=== PATIENT | male | born 1985 | race Caucasian/White ===

== ENCOUNTER 2017-01-17 08:12 | Observation (INO) | payer OTHER ==
--- NOTE | 2017-01-17 08:37 | UCPHY ---
H & P Patient Type: New Time Seen by Provider: 01/17/17 08:27 HPI/ROS: Chief Complaint: A left lower abdominal pain HPI: 31-year-old male presenting with several days of worsening left lower abdominal pain with some pain with urination. Patient describes it as a dull pain in his left lower abdomen which occasionally radiates to his general area. He does have some cramping low pelvic pain after he urinates. Does not have any burning with urination. No urethral discharge. No rashes or lesions. He is not sexually active. Has never had a sexually transmitted disease. Denies any back pain. Pain at worst is a 10/10. This morning is a 7/10. There are no aggravating or alleviating factors. Is unable to find a position of comfort. No fevers or chills. No nausea vomiting or diarrhea. ROS: 10 point Review of Systems is negative except as noted in the HPI. PMH: Anxiety Medications: None Allergies: Bupropion Social History: Occasional smoking, occasional alcohol, no recreational drug use Family History: non-contributory Physical Exam: Gen: Awake, Alert, No Distress HEENT: Nose: no rhinorrhea Eyes: PERRLA, EOMI Mouth: Moist mucosa Neck: Supple, no JVD Chest: nontender, lungs clear to auscultation Heart: S1, S2 normal, no murmur Abd: Soft, mild left lower and suprapubic tenderness to deep palpation, no guarding Back: no CVA tenderness, no midline tenderness Ext: no edema, non-tender Skin: no rash Neuro: CN II-XII intact, Sensation grossly intact, Strength 5/5 in bilateral upper and lower extremities - Family History Significant Family History: No pertinent family hx Constitutional: Initial Vital Signs Temperature (C) 36.6 C 01/17/17 08:29 Heart Rate 100 01/17/17 08:29 Respiratory Rate 18 01/17/17 08:29 Blood Pressure 132/94 H 01/17/17 08:29 O2 Sat (%) 98 01/17/17 08:29 O2 Delivery Mode Room Air Allergies/Adverse Reactions: No Known Allergies Allergy (Unverified 01/17/17 12:52) Home Medications: Medication Instructions Recorded NK [No Known Home Meds] 01/17/17 Medical Decision Making - Diagnostics Imaging: CT scan abdomen pelvis without contrast shows sigmoid diverticulitis with microperforation. No abscess. This was interpreted by Dr. Burt. ED Course/Re-evaluation: Patient left lower quadrant abdominal pain. Urinalysis is negative. CT scan reveals sigmoid diverticulitis with microperforation. I have discussed with Gretta Rodriguez, hospitalist. Will admit to hospitalist service at [facility] under Dr. Pink. Will give Levaquin and Flagyl now. - Data Points Laboratory Results: Laboratory Results 01/17/17 09:00 01/17/17 08:58 01/17/17 01/17/17 01/17/17 09:33 09:00 08:58 WBC 17.46 10^3/uL H 10^3/uL (3.80-9.50) RBC 5.91 10^6/uL 10^6/uL (4.40-6.38) Hgb 17.0 g/dL g/dL (13.7-17.5) Hct 48.5 % % (40.0-51.0) MCV 82.1 fL fL (81.5-99.8) MCH 28.8 pg pg (27.9-34.1) MCHC 35.1 g/dL g/dL (32.4-36.7) RDW 12.3 % % (11.5-15.2) Plt Count 224 10^3/uL 10^3/uL (150-400) MPV 10.7 fL fL (8.7-11.7) Neut % (Auto) 76.6 % H % (39.3-74.2) Lymph % (Auto) 13.2 % L % (15.0-45.0) [place] % (Auto) 9.2 % % (4.5-13.0) Eos % (Auto) 0.5 % L % (0.6-7.6) Baso % (Auto) 0.1 % L % (0.3-1.7) Nucleat RBC Rel Count 0.0 % % (0.0-0.2) Absolute Neuts (auto) 13.38 10^3/uL H 10^3/uL (1.70-6.50) Absolute Lymphs (auto) 2.31 10^3/uL 10^3/uL (1.00-3.00) Absolute Monos (auto) 1.60 10^3/uL H 10^3/uL (0.30-0.80) Absolute Eos (auto) 0.08 10^3/uL 10^3/uL (0.03-0.40) Absolute Basos (auto) 0.02 10^3/uL 10^3/uL (0.02-0.10) Absolute Nucleated RBC 0.00 10^3/uL 10^3/uL (0-0.01) Immature Gran % 0.4 % % (0.0-1.1) Immature Gran # 0.07 10^3/uL 10^3/uL (0.00-0.10) Sodium 138 mEq/L mEq/L (134-144) Potassium 4.1 mEq/L mEq/L (3.5-5.2) Chloride 102 mEq/L mEq/L (97-110) Carbon Dioxide 20 mEq/l L mEq/l (22-31) Anion Gap 16 mEq/L mEq/L (8-16) BUN 17 mg/dL mg/dL (7-23) Creatinine 0.9 mg/dL mg/dL (0.7-1.3) Estimated GFR > 60 Glucose 119 mg/dL H mg/dL (70-100) Calcium 9.1 mg/dL mg/dL (8.5-10.4) Urine Color YELLOW Urine Appearance CLEAR Urine pH 6.0 (5.0-7.5) Ur Specific [place] >= 1.030 (1.002-1.030) Urine Protein NEGATIVE (NEGATIVE) Urine Ketones NEGATIVE (NEGATIVE) Urine Blood NEGATIVE (NEGATIVE) Urine Nitrate NEGATIVE (NEGATIVE) Urine Bilirubin NEGATIVE (NEGATIVE) Urine Urobilinogen 0.2 EU EU (0.2-1.0) Ur Leukocyte Esterase NEGATIVE (NEGATIVE) Urine Glucose NEGATIVE (NEGATIVE) C.trachomatis RNA (TMA) N.gonorrhoeae RNA (TMA) 01/17/17 08:45 WBC RBC Hgb Hct MCV MCH MCHC RDW Plt Count MPV Neut % (Auto) Lymph % (Auto) [place] % (Auto) Eos % (Auto) Baso % (Auto) Nucleat RBC Rel Count Absolute Neuts (auto) Absolute Lymphs (auto) Absolute Monos (auto) Absolute Eos (auto) Absolute Basos (auto) Absolute Nucleated RBC Immature Gran % Immature Gran # Sodium Potassium Chloride Carbon Dioxide Anion Gap BUN Creatinine Estimated GFR Glucose Calcium Urine Color Urine Appearance Urine pH Ur Specific [place] Urine Protein Urine Ketones Urine Blood Urine Nitrate Urine Bilirubin Urine Urobilinogen Ur Leukocyte Esterase Urine Glucose C.trachomatis RNA (TMA) Pending N.gonorrhoeae RNA (TMA) Pending Medications Given: Discontinued Medications Fentanyl (Sublimaze) 50 mcg IVP EDNOW ONE Stop: 01/17/17 11:50 Last Admin: 01/17/17 11:55 Dose: 50 mcg Sodium Chloride (Ns) 1,000 mls @ 0 mls/hr IV ONCE ONE PRN Reason: Wide Open Stop: 01/17/17 09:04 Last Admin: 01/17/17 08:55 Dose: 1,000 mls Levofloxacin/Dextrose (Levaquin 750 Mg (Premix)) 150 mls @ 100 mls/hr IV EDNOW ONE PRN Reason: Protocol Stop: 01/17/17 12:42 Last Admin: 01/17/17 12:13 Dose: Not Given Metronidazole/Sodium Chloride (Flagyl 500 Mg (Premix)) 100 mls @ 100 mls/hr IV EDNOW ONE PRN Reason: Protocol Stop: 01/17/17 12:09 Last Admin: 01/17/17 11:25 Dose: 100 mls Ketorolac Tromethamine (Toradol) 15 mg IVP EDNOW ONE Stop: 01/17/17 09:33 Last Admin: 01/17/17 09:41 Dose: 15 mg Levofloxacin (Levaquin) 750 mg PO ONCE ONE PRN Reason: Protocol Stop: 01/17/17 11:56 Last Admin: 01/17/17 11:58 Dose: 750 mg Departure - Departure Disposition: [facility] Inpatient Acute Clinical Impression: Diverticulitis Condition: Good - PQRS PQRS Measurement: NA
[2017-01-17] MEDS ORDERED: NS 1,000 ML IV ONE (09:03)
[2017-01-17 09:22] LABS: ANION GAP 16 mEq/L (8-16); CALCIUM 9.1 mg/dL (8.5-10.4); CARBON DIOXIDE 20 mEq/l (22-31); CHLORIDE 102 mEq/L (97-110); CREATININE 0.9 mg/dL (0.7-1.3); GLOMERULAR FILTRATION RATE > 60; GLUCOSE 119 mg/dL (70-100); POTASSIUM 4.1 mEq/L (3.5-5.2); SODIUM 138 mEq/L (134-144)
[2017-01-17] MEDS ORDERED: KETOROLAC 15 MG/1 ML SDV IVP ONE (09:32)
[2017-01-17 09:39] LABS: COLOR YELLOW; LEUKOCYTE ESTERASE,URINE NEGATIVE (NEGATIVE); NITRITE,URINE NEGATIVE (NEGATIVE)
[2017-01-17 10:59] LABS: % IMMATURE GRANULYOCYTES 0.4 % (0.0-1.1); ABSOLUTE IMMATURE GRANULOCYTES 0.07 10^3/uL (0.00-0.10); ADD DIFF? NO; ADD MORPH? NO; ADD SCAN? NO; ATYPICAL LYMPHOCYTE FLAG 0 (0-99); FRAGMENT RBC FLAG 0 (0-99); HEMATOCRIT 48.5 % (40.0-51.0); LEFT SHIFT FLG 0 (0-99); LIPEMIA HEMOLYSIS FLAG 90 (0-99); MEAN CELL HEMOGLOBIN 28.8 pg (27.9-34.1); MEAN CELL HEMOGLOBIN CONCENTR. 35.1 g/dL (32.4-36.7); MEAN CELL VOLUME 82.1 fL (81.5-99.8); MEAN PLATELET VOLUME 10.7 fL (8.7-11.7); PLATELET CLUMPS FLAG 0 (0-99); PLATELET COUNT 224 10^3/uL (150-400); RED BLOOD CELL COUNT 5.91 10^6/uL (4.40-6.38); RED CELL DISTRIBUTION WIDTH 12.3 % (11.5-15.2)
[2017-01-17] MEDS ORDERED: fentaNYL 100 MCG/2 ML INJ IVP ONE (11:49)
[2017-01-17] MEDS ORDERED: ACETAMINOPHEN 325 MG TAB PO PRN (13:26)
[2017-01-17] MEDS ORDERED: ONDANSETRON 4 MG/2 ML VIAL IVP PRN (13:26)
[2017-01-17] MEDS ORDERED: ONDANSETRON DISINTEGRATING 4 MG TAB PO PRN (13:26)
[2017-01-17 13:34] VITALS: RESP 16
[2017-01-17] MEDS ORDERED: oxyCODONE IR 5 MG TAB PO PRN ×2 (14:02→14:19)
[2017-01-17] MEDS: CEFEPIME HCL 2 GM in D5W 100 ML IV SCH ×2 (14:28→22:00)
--- NOTE | 2017-01-17 15:45 | GHP ---
[f rep st] HISTORY AND PHYSICAL DATE OF ADMISSION: 01/17/2017 CHIEF COMPLAINT: Diverticulitis. HISTORY OF PRESENT ILLNESS: Patient is a 31-year-old male with history of anxiety who presents with several days of left lower abdominal pain. Pain started initially yesterday morning in the left lower quadrant. It was sharp in nature. It did radiate down to the left and right groin. Pain worse last night, 05/30. He had some associated nausea but no vomiting. Denies fevers, chills, sweats, or diarrhea. He did eat dinner last night and a few crackers today. Began having a headache today when at urgent care clinic. He has cramping pelvic pain with urination. He denies urethral rash or urethral discharge and is not currently sexually active. REVIEW OF SYSTEMS: I completed a 10-point review of systems, negative except as noted in HPI. PAST MEDICAL HISTORY: 1. Anxiety. 2. Hypertension, previously on hydrochlorothiazide. PAST SURGICAL HISTORY: Appendectomy. SOCIAL HISTORY: Lives in [place]. 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 Occasional cigarettes. Social alcohol. No illicits. FAMILY HISTORY: Mother with hypertension, diabetes. Paternal grandfather with cancer. ALLERGIES: Bupropion. PHYSICAL EXAMINATION: VITAL SIGNS: Temperature 36.8, blood pressure 160/92, heart rate 70-80s, respirations 16, 93% on room air. GENERAL: Overweight, white , no acute distress, lying in bed. HEENT: PERRLA, EOMI. Moist mucous membranes. CV: Regular rate and rhythm. No murmurs, gallops, rubs. LUNGS: Clear to auscultation bilaterally. ABDOMEN: Soft, nondistended. Left lower quadrant tenderness greater than right lower quadrant. No pain or palpable hernia in left inguinal region. No guarding or rebound. Positive bowel sounds throughout. : No suprapubic tenderness. MUSCULOSKELETAL: 5/5 upper and lower extremity strength. NEURO: 2 through 12 intact. PSYCHIATRIC: Alert and oriented x3. LABS: WBC 17.4, hemoglobin 17, hematocrit 48, platelets 222. Sodium 138, potassium 4.1, chloride 102, carbon dioxide 28, BUN 17, creatinine 0.9, glucose 119, calcium 9.1. Urine negative. G&C pending. Abdominal CT: Sigmoid diverticulitis with punctate free air consistent with perforation with no visible abscess with a small amount of free fluid. Fatty liver. Fat-containing left inguinal hernia. ASSESSMENT/PLAN: 1. Acute diverticulitis: Evidence of sigmoid involvement with small micro perforations. No evidence of abscess. Patient will be admitted for observation. Treated with IV antibiotics and fluids. May trial a clear liquid diet. 2. Acute abdominal pain: Secondary to diverticulitis. No TTP over inguinal region. PRN IV morphine. UA negative. G&C pending 3. Leukocytosis: Secondary to diverticulitis. UA was negative. We will repeat in the morning. 4. DVT prophylaxis: Low risk. 5. Diet: Clears. 6. Disposition: Patient warrants observation admission given acute diverticulitis, warranting IV fluids and antibiotics. /[id number]/MODL MTDD
[2017-01-17 16:33] VITALS: O2SAT 96
[2017-01-17 16:38] LABS: ALBUMIN 4.2 g/dL (3.5-5.0); BILIRUBIN,TOTAL 1.2 mg/dL (0.1-1.4); BILIRUBIN-CONJUGATED 0.4 mg/dL (0.0-0.5); BILIRUBIN-UNCONJUGATED 0.8 mg/dL (0.0-1.1); TOTAL PROTEIN 7.8 g/dL (6.3-8.2)
[2017-01-17] MEDS: oxyCODONE IR 5 MG TAB PO PRN (20:14)
[2017-01-18] MEDS: oxyCODONE IR 5 MG TAB PO PRN (02:27)
[2017-01-18] MEDS: CEFEPIME HCL 2 GM in D5W 100 ML IV SCH ×2 (05:05→14:33)
[2017-01-18 05:48] LABS: HEMATOCRIT 44.3 % (40.0-51.0); MEAN CELL HEMOGLOBIN 28.7 pg (27.9-34.1); MEAN CELL HEMOGLOBIN CONCENTR. 33.9 g/dL (32.4-36.7); MEAN CELL VOLUME 84.9 fL (81.5-99.8); RED BLOOD CELL COUNT 5.22 10^6/uL (4.40-6.38); RED CELL DISTRIBUTION WIDTH 12.1 % (11.5-15.2)
[2017-01-18 06:44] LABS: CHLAMYDIA AMPLIFICATION GENPRB NEGATIVE (NEGATIVE)
[2017-01-18 08:03] VITALS: BP 143/83; PULSE 86; TEMP 99.2
--- NOTE | 2017-01-18 08:49 | HOSPPROG ---
Hospitalist Progress Note Assessment/Plan: #Acute abdominal pain: due to diverticulitis. UA/G&C negative. No TTP over hernia -tolerated full liquids. Would like to go home. #Acute diverticulitis: pain improved. Change to PO abx. Oxycodone #Left inguinal hernia: no e/o strangulation #Disp: DC today. provided detailed return precautions Subjective: pain much improved. Tolerated full liquids diet today Objective: Vital Signs Temp Pulse Resp BP Pulse Ox 37.3 C 86 16 143/83 H 96 01/18/17 08:02 01/18/17 08:02 01/18/17 08:02 01/18/17 08:02 01/18/17 08:02 Laboratory Results 01/18/17 05:00 01/17/17 01/18/17 01/19/17 05:59 05:59 05:59 Intake Total 2800 300 Output Total 550 Balance 2250 300 - Physical Exam Constitutional: no apparent distress Eyes: PERRL Ears, Nose, Mouth, Throat: moist mucous membranes Cardiovascular: regular rate and rhythym Respiratory: no respiratory distress Gastrointestinal: normoactive bowel sounds, soft, non-tender abdomen, tenderness (mild lower LLQ TTP, quiet BS throughout) Genitourinary: no bladder fullness Skin: warm ICD10 Worksheet Patient Problems: Problems Problem Status Onset Diverticulitis Acute
[2017-01-18] MEDS ORDERED: IBUPROFEN 600 MG TAB PO ONE (09:25)
--- NOTE | 2017-01-18 17:18 | GDS ---
[f rep st] DISCHARGE SUMMARY DISCHARGE DIAGNOSES: 1. Acute abdominal pain. 2. Diverticulitis. 3. Left inguinal hernia. 4. Accelerated hypertension. HISTORY OF PRESENT ILLNESS: The patient is a 31-year-old male with history of hypertension, not currently on BP medications, and anxiety presenting with several days of left lower abdominal pain. The pain started initially yesterday morning with left lower quadrant, sharp in nature. It did radiate down the left and right groin. Pain was worst at 8/10. He had associated nausea, but no vomiting. Denies fevers, chills, or sweats. No diarrhea. He did eat dinner the night prior to admission, and had a few crackers the day of. He has had a headache since being in the urgent care clinic. HOSPITAL COURSE BY PROBLEM: 1. Acute abdominal pain secondary to acute diverticulitis: Abdominal CT demonstrated sigmoid diverticulitis with microperforation. No abscess. The patient was admitted and empirically treated with IV antibiotics, fluids, and n.p.o. status. As pain improved advanced his diet to full liquids, which he tolerated today without issue. 2. Acute diverticulitis: Again, no evidence of abscess. Treated empirically with IV antibiotics. Symptoms have much improved. The patient tolerated a full liquid diet today. We will continue ciprofloxacin and Flagyl for a total of 7 days antibiotics. The patient was given strict return precautions, with increased abdominal pain, nausea, vomiting. 3. Left inguinal hernia. This was demonstrated on CT. The patient was asymptomatic. No palpable hernia. He was advised if it becomes larger or symptomatic, to contact a general surgeon. 4. Leukocytosis. WBC was elevated to 17. Suspect this is inflammation given acute diverticulitis. Denies other infectious symptoms. UA and G and C were negative. He has remained afebrile. DISPOSITION: The patient is stable for discharge. MEDICATIONS: 1. Ciprofloxacin 500 b.i.d. 2. Flagyl 500 t.i.d. 3. Oxycodone. FOLLOWUP: 1. PCP to repeat blood pressure and possible antihypertensive. 2. Referral for a surgeon if inguinal hernia becomes symptomatic. /[id number]/MODL MTDD
== END 2017-01-18 16:15 | disposition home or self-care (01) ==
LOC: CED 08:12 → INTOOBSV 11:13 → CEDHOLD 11:13 → F3N 13:25
PROVIDERS: ADMIT Internal Medicine; ATTEND Internal Medicine
DX: R10.0 Acute abdomen (principal); K57.32 Diverticulitis of large intestine without perforation or abscess without bleeding; K40.90 Unilateral inguinal hernia, without obstruction or gangrene, not specified as recurrent; I10 Essential (primary) hypertension; F41.9 Anxiety disorder, unspecified
CPT/HCPCS: 74176; 96361; 96365; 96372; 96375; 99203; G0378; 80048-PO; 81003-PO; 85025-PO; G0463-PO; J0692; J1885; J3010

== ENCOUNTER 2017-01-21 14:34 | Inpatient (IN) | payer OTHER ==
--- NOTE | 2017-01-21 14:48 | UCPHY ---
H & P Patient Type: Established Chief Complaint Nursing Narrative: recent hospitalization dx with diverticulitis , d/c home with oral abx, still with abd tenderness and loose stools, pt concerned for tenderness and stools, requesting MD evaluation. denies fevers HPI/ROS: HPI CHIEF COMPLAINT: Abdominal pain, abdominal bloating, recent hospitalization diverticulitis HISTORY OF PRESENT ILLNESS: This patient very pleasant 31-year-old male significant past medical history for hypertension, recent hospitalization for acute diverticulitis of the sigmoid colon with micro perforation, was hospitalized this past week stayed 1 day in the hospital. He went home on Saturday or 3 days ago. He now presents to the urgent care with abdominal pain and abdominal bloating. He is unsure if this is normal for his recovery or not. He has been taking his ciprofloxacin been taking his Flagyl. No fever no vomiting does complain of still having diarrhea. Past Medical History: Acute diverticulitis, hypertension Past Surgical History: no recent surgical history Social History: denies daily use of drugs alcohol tobacco products Family History: Noncontributory ROS REVIEW OF SYSTEMS: A comprehensive 10 point review of systems is otherwise negative aside from elements mentioned in the history of present illness. Exam Constitutional triage nursing summary reviewed, vital signs reviewed, awake/ alert. Eyes normal conjunctivae and sclera, EOMI, PERRLA. HENT normal inspection, atraumatic, moist mucus membranes, no epistaxis, neck supple/ no meningismus, no raccoon eyes. Respiratory clear to auscultation bilaterally, normal breath sounds, no respiratory distress, no wheezing. Cardiovascular rate normal, regular rhythm, no murmur, no edema, distal pulses normal. Gastrointestinal soft, mild tenderness to palpation left lower quadrant, no rebound, no guarding, normal bowel sounds, no distension, no pulsatile mass. Genitourinary no CVA tenderness. Musculoskeletal no midline vertebral tenderness, full range of motion, no calf swelling, no tenderness of extremities, no meningismus, good pulses, neurovascularly intact. Skin pink, warm, & dry, no rash, skin atraumatic. Neurologic awake, alert and oriented x 3, AAOx3, moves all 4 extremities equally, motor intact, sensory intact, CN II-XII intact, normal cerebellar, normal vision, normal speech. Psychiatric normal mood/affect. Heme/Lymph/Immune no lymphadenopathy. Differential diagnosis includes but is not limited to and in no particular order : worsening diverticulitis, worsening perforation, abscess Bowel obstruction, appendicitis, gallbladder disease, diverticulitis, colitis, enteritis, perforated viscus, gastritis, GERD, esophagitis, urinary tract infection, pyelonephritis, kidney stones Medical Decision Making: plan for this patient IV will be established, fluid bolus given, check blood work, and reimaging CT scan due to worsening abdominal pain concern for larger perforation, worsening acute diverticulitis or intra- abdominal abscess. Re-evaluation: CT scan of the abdominal with IV contrast The results of the study are shows worsening diverticulitis with perforation. The study was read by Dr. Ibarra I viewed the images myself on the PACS system. 1621: This patient appears well nontoxic not vomiting however CT scan shows worsening acute diverticulitis with perforation. Patient need to be readmitted to the hospital. Patient has been updated agrees for plan grease for transfer to the hospital. 1624: spoke with Dr. Dugan who agrees to admit this patient med surgical bed. Patient hemodynamically stable. Worsening acute diverticulitis. Will consult surgery. IV ertapenem ordered patient was on Cipro Flagyl, outpatient and briefly in the hospital. May be failing Cipro Flagyl. 1629: Spoke with Dr. Vipul Fuentes with General surgery. Plans to operate. Patient made NPO. Hospitalist service updated. Source: Patient - Medical/Surgical History Hx Asthma: No Hx Chronic Respiratory Disease: No Hx Diabetes: No Hx Cardiac Disease: No Hx Renal Disease: No Hx Cirrhosis: No Hx Alcoholism: No Hx HIV/AIDS: No Hx Splenectomy or Spleen Trauma: No Other PMH: anxiety, HTN, diverticulitis - Family History Significant Family History: No pertinent family hx - Social History Smoking Status: Current some day smoker Constitutional: Initial Vital Signs Temperature (C) 36.5 C 01/21/17 14:43 Heart Rate 82 01/21/17 14:43 Respiratory Rate 18 01/21/17 14:43 Blood Pressure 175/110 H 01/21/17 14:43 O2 Sat (%) 95 01/21/17 14:43 O2 Delivery Mode Nasal Cannula O2 (L/minute) 1 Allergies/Adverse Reactions: No Known Allergies Allergy (Unverified 01/21/17 14:42) Home Medications: Medication Instructions Recorded Ciprofloxacin HCl [Ciprofloxacin] 500 mg PO BID #28 tablet 01/24/17 metroNIDAZOLE [Flagyl 500 mg (*)] 500 mg PO TID #42 tab 01/24/17 Medical Decision Making - Data Points Laboratory Results: Laboratory Results 01/21/17 15:12 01/21/17 15:12 Medications Given: Discontinued Medications Sodium Chloride (Ns) 1,000 mls @ 0 mls/hr IV ONCE ONE PRN Reason: Wide Open Stop: 01/21/17 14:57 Last Admin: 01/21/17 15:12 Dose: 1,000 mls Ertapenem 1 gm/ Sodium (Chloride) 100 mls @ 200 mls/hr IV EDNOW ONE PRN Reason: Protocol Stop: 01/21/17 16:52 Last Admin: 01/21/17 16:32 Dose: 100 mls Sodium Chloride (Ns) 1,000 mls @ 0 mls/hr IV ONCE ONE PRN Reason: Wide Open Stop: 01/21/17 16:24 Last Admin: 01/21/17 16:31 Dose: 1,000 mls Ertapenem 1 gm/ Sodium (Chloride) 100 mls @ 200 mls/hr IV DAILY GLADYS PRN Reason: Protocol Stop: 02/21/17 15:59 Last Admin: 01/24/17 08:44 Dose: 100 mls Dextrose/Sodium Chloride (D5w Ns) 1,000 mls @ 125 mls/hr IV CONT GLADYS Stop: 07/20/17 19:44 Last Admin: 01/23/17 06:28 Dose: 1,000 mls Ibuprofen (Motrin) 600 mg PO ONCE ONE Stop: 01/24/17 04:24 Last Admin: 01/24/17 04:31 Dose: 600 mg Lisinopril (Zestril) 5 mg PO DAILY GLADYS Stop: 07/22/17 08:59 Last Admin: 01/24/17 08:43 Dose: 5 mg Oxycodone/Acetaminophen (Percocet 5/325) 1 - 2 tab PO Q4 PRN PRN Reason: Pain, Severe Able to Take PO Stop: 01/31/17 21:59 Last Admin: 01/23/17 06:28 Dose: 2 tab Departure - Departure Disposition: [facility] Acute Clinical Impression: Acute abdominal pain, Diverticulitis of colon Diverticulitis Qualifiers: Diverticulitis site: unspecified part of intestinal tract Diverticulitis bleeding: without bleeding Diverticulitis complication: with perforation Qualified Code(s): K57.80 - Diverticulitis of intestine, part unspecified, with perforation and abscess without bleeding Condition: Fair - PQRS PQRS Measurement: n/a
[2017-01-21] MEDS ORDERED: NS 1,000 ML IV ONE ×2 (14:56→16:23)
[2017-01-21 15:18] LABS: % IMMATURE GRANULYOCYTES 0.5 % (0.0-1.1); ABSOLUTE IMMATURE GRANULOCYTES 0.05 10^3/uL (0.00-0.10); ADD DIFF? NO; ADD MORPH? NO; ADD SCAN? NO; ATYPICAL LYMPHOCYTE FLAG 10 (0-99); FRAGMENT RBC FLAG 0 (0-99); HEMATOCRIT 45.6 % (40.0-51.0); LEFT SHIFT FLG 0 (0-99); LIPEMIA HEMOLYSIS FLAG 90 (0-99); MEAN CELL HEMOGLOBIN CONCENTR. 35.1 g/dL (32.4-36.7); MEAN CELL VOLUME 82.8 fL (81.5-99.8); MEAN PLATELET VOLUME 9.9 fL (8.7-11.7); PLATELET CLUMPS FLAG 30 (0-99); PLATELET COUNT 258 10^3/uL (150-400); RED BLOOD CELL COUNT 5.51 10^6/uL (4.40-6.38); RED CELL DISTRIBUTION WIDTH 11.9 % (11.5-15.2)
[2017-01-21] MEDS ORDERED: IOPAMIDOL (ISOVUE-300) 100 ML BTL IV ONE (15:19)
[2017-01-21 15:32] LABS: INR 1.2 (0.83-1.16); PROTIME(PATIENT) 14.9 SEC (12.0-15.0)
[2017-01-21 15:33] LABS: APTT 33.7 SEC (23.0-38.0)
[2017-01-21 15:38] LABS: ALANINE AMINOTRANSFERASE 33 IU/L (21-72); ALBUMIN 3.7 g/dL (3.5-5.0); ALKALINE PHOSPHATASE 76 IU/L (38-126); ANION GAP 16 mEq/L (8-16); ASPARTATE AMINOTRANSFERASE 12 IU/L (17-59); BILIRUBIN,TOTAL 0.4 mg/dL (0.1-1.4); BILIRUBIN-CONJUGATED 0.2 mg/dL (0.0-0.5); BILIRUBIN-UNCONJUGATED 0.2 mg/dL (0.0-1.1); CALCIUM 8.8 mg/dL (8.5-10.4); CARBON DIOXIDE 24 mEq/l (22-31); CHLORIDE 102 mEq/L (97-110); CREATININE 0.9 mg/dL (0.7-1.3); GLOMERULAR FILTRATION RATE > 60; GLUCOSE 105 mg/dL (70-100); POTASSIUM 4.2 mEq/L (3.5-5.2); SODIUM 142 mEq/L (134-144)
[2017-01-21] MEDS ORDERED: ERTAPENEM 1 GM in NS 100 ML IV ONE (16:23)
[2017-01-21] MEDS ORDERED: ONDANSETRON DISINTEGRATING 4 MG TAB PO PRN (19:05)
[2017-01-21] MEDS ORDERED: ONDANSETRON 4 MG/2 ML VIAL IVP PRN (19:05)
[2017-01-21] MEDS ORDERED: ACETAMINOPHEN 325 MG TAB PO PRN (19:05)
[2017-01-21] MEDS ORDERED: HYDROmorphONE/DILAUDID 1 MG/ML SYR IVP PRN (19:05)
[2017-01-21] MEDS ORDERED: NS 1,000 ML IV SCH (19:15)
--- NOTE | 2017-01-21 19:32 | PDGENHP ---
History and Physical - Chief Complaint abdominal pain, diarrhea - History of Present Illness 31 yo male with h/o hypertension who was recently discharged from the hospital after admission for acute diverticulitis. He went home on oral Cipro and Flagyl , but returned to urgent care today with persistent lower abdominal pain discomfort and diarrheal stools. He denies hematochezia or melanotic stools. He is tolerating a full diet without nausea or vomiting. He denies fevers or chills. In urgent care, repeat CT imaging revealed worsening microperforation and inflammation and he is readmitted for further management. History Information - Allergies/Home Medication List Allergies/Adverse Reactions: No Known Allergies Allergy (Unverified 01/21/17 14:42) I have personally reviewed and updated: family history, medical history, social history, surgical history - Past Medical History hypertension Additional medical history: diverticulitis - Surgical History Reports: no pertinent surgical hx - Family History Positive for: non-pertinent - Social History Smoking Status: Current some day smoker Alcohol Use: None Drug Use: None Additional social history: Lives with roommates. Mom is local and present at bedside. Review of Systems ROS: 10pt was reviewed & negative except for what was stated in HPI & below Physical Exam Temp Pulse Resp BP Pulse Ox 36.9 C 71 16 148/96 H 98 01/21/17 18:35 01/21/17 18:35 01/21/17 18:35 01/21/17 18:35 01/21/17 18:35 O2 (L/minute) 1 Constitutional: no apparent distress Eyes: PERRL Ears, Nose, Mouth, Throat: moist mucous membranes Cardiovascular: regular rate and rhythym Respiratory: no respiratory distress Gastrointestinal: normoactive bowel sounds, other (soft, nd, mild lower abdominal TTP without r/r/g, +BS) Skin: warm Musculoskeletal: full muscle strength Neurologic: AAOx3 Psychiatric: interacting appropriately Lab Data & Imaging Review 01/21/17 15:12 01/21/17 15:12 WBC 10.87 10^3/uL (3.80-9.50) H 01/21/17 15:12 RBC 5.51 10^6/uL (4.40-6.38) 01/21/17 15:12 Hgb 16.0 g/dL (13.7-17.5) 01/21/17 15:12 Hct 45.6 % (40.0-51.0) 01/21/17 15:12 MCV 82.8 fL (81.5-99.8) 01/21/17 15:12 MCH 29.0 pg (27.9-34.1) 01/21/17 15:12 MCHC 35.1 g/dL (32.4-36.7) 01/21/17 15:12 RDW 11.9 % (11.5-15.2) 01/21/17 15:12 Plt Count 258 10^3/uL (150-400) 01/21/17 15:12 MPV 9.9 fL (8.7-11.7) 01/21/17 15:12 Neut % (Auto) 70.5 % (39.3-74.2) 01/21/17 15:12 Lymph % (Auto) 19.5 % (15.0-45.0) 01/21/17 15:12 Harnett % (Auto) 8.1 % (4.5-13.0) 01/21/17 15:12 Eos % (Auto) 1.1 % (0.6-7.6) 01/21/17 15:12 Baso % (Auto) 0.3 % (0.3-1.7) 01/21/17 15: Nucleat RBC Rel Count 0.0 % (0.0-0.2) 01/21/17 15:12 Absolute Neuts (auto) 7.67 10^3/uL (1.70-6.50) H 01/21/17 15:12 Absolute Lymphs (auto) 2.12 10^3/uL (1.00-3.00) 01/21/17 15:12 Absolute Monos (auto) 0.88 10^3/uL (0.30-0.80) H 01/21/17 15:12 Absolute Eos (auto) 0.12 10^3/uL (0.03-0.40) 01/21/17 15:12 Absolute Basos (auto) 0.03 10^3/uL (0.02-0.10) 01/21/17 15:12 Absolute Nucleated RBC 0.00 10^3/uL (0-0.01) 01/21/17 15:12 Immature Gran % 0.5 % (0.0-1.1) 01/21/17 15:12 Immature Gran # 0.05 10^3/uL (0.00-0.10) 01/21/17 15:12 PT 14.9 SEC (12.0-15.0) 01/21/17 15:12 INR 1.20 (0.83-1.16) H 01/21/17 15:12 APTT 33.7 SEC (23.0-38.0) 01/21/17 15:12 VBG Lactic Acid 0.6 mmol/L (0.7-2.1) L 01/21/17 15:12 Sodium 142 mEq/L (134-144) 01/21/17 15:12 Potassium 4.2 mEq/L (3.5-5.2) 01/21/17 15:12 Chloride 102 mEq/L (97-110) 01/21/17 15:12 Carbon Dioxide 24 mEq/l (22-31) 01/21/17 15:12 Anion Gap 16 mEq/L (8-16) 01/21/17 15:12 BUN 19 mg/dL (7-23) 01/21/17 15:12 Creatinine 0.9 mg/dL (0.7-1.3) 01/21/17 15:12 Estimated GFR > 60 01/21/17 15:12 Glucose 105 mg/dL (70-100) H 01/21/17 15:12 Calcium 8.8 mg/dL (8.5-10.4) 01/21/17 15:12 Total Bilirubin 0.4 mg/dL (0.1-1.4) 01/21/17 15:12 Conjugated Bilirubin 0.2 mg/dL (0.0-0.5) 01/21/17 15:12 Unconjugated Bilirubin 0.2 mg/dL (0.0-1.1) 01/21/17 15:12 AST 12 IU/L (17-59) L 01/21/17 15:12 ALT 33 IU/L (21-72) 01/21/17 15:12 Alkaline Phosphatase 76 IU/L (38-126) 01/21/17 15:12 Total Protein 7.0 g/dL (6.3-8.2) 01/21/17 15:12 Albumin 3.7 g/dL (3.5-5.0) 01/21/17 15:12 Lipase 53.0 IU/L (23-300) 01/21/17 15:12 Assessment & Plan Assessment: Diverticulitis - progression of microperforations on repeat CT. Pt is afebrile , mild leukocytosis and abdominal exam is not consistent with acute peritonitis. Discussed case with Dr. Fuentes, general surgery, given worsening symptoms. -will keep NPO until surgical evaluation, may require surgery at some point, but it is not emergent -change from cipro/flagyl to ertapenem -IVF's, pain control Diarrhea - likely related to above, but given atbx use, will check C diff Hypertension - was on HCTZ in outpt setting, but stopped this some time ago. BP a bit elevated here. Will monitor and consider resuming HCTZ if persists elevated. Hernia - incidental finding on CT. Pt aware to return if this becomes symptomatic. Can also have surgery weigh in. DVT PPLX - low risk, SCD's for now. Consider Lovenox if post-op and prolonged hospitalization. Full code Dispo - inpt, will likely require >48 hrs hospitalization for management of diverticulitis with microperforation
[2017-01-21] MEDS: D5W NS 1,000 ML IV SCH (20:55)
[2017-01-21] MEDS ORDERED: HYDROCODONE/APAP 5/325 TAB PO PRN (22:00)
[2017-01-21] MEDS ORDERED: OXYCODONE/APAP 5/325 TAB PO PRN ×2 (22:00)
[2017-01-21] MEDS ORDERED: LOPERAMIDE HCL 2 MG CAP PO PRN (22:00)
--- NOTE | 2017-01-21 22:11 | SOAPPROG ---
SOAP Progress Note Assessment/Plan: Assessment: 31 MALE WITH WORSENING DIVERTICULITIS ADMIT FOR EVAL WBC 11K ABD SOFT BUT TENDER IN SUPRAPUBIC AREA CHEST CLEAR/ COR RR/ HEENT NONICTERIC RISKS AND OPTIONS FULLY DISCUSSED Plan: WILL FOLLOW/ MAY NEED COLECTOMY 01/21/17 22:07 Objective: Vital Signs Temp Pulse Resp BP Pulse Ox 36.2 C 69 18 158/101 H 95 01/21/17 21:02 01/21/17 21:02 01/21/17 21:02 01/21/17 21:02 01/21/17 21:02 01/20/17 01/21/17 01/22/17 05:59 05:59 05:59 Intake Total 2100 Balance 2100 PT 14.9 SEC (12.0-15.0) 01/21/17 15:12 INR 1.20 (0.83-1.16) H 01/21/17 15:12 ICD10 Worksheet Patient Problems: Problems Problem Status Onset Acute abdominal pain Acute Diverticulitis Acute Diverticulitis of colon Acute Diverticulitis Acute
[2017-01-22 00:55] LABS: COLOR YELLOW; LEUKOCYTE ESTERASE,URINE TRACE (NEGATIVE); NITRITE,URINE NEGATIVE (NEGATIVE)
[2017-01-22 01:31] LABS: RBC,URINE NONE SEEN /hpf (0-3); WBC,URINE NONE SEEN /hpf (0-3)
[2017-01-22] MEDS: D5W NS 1,000 ML IV SCH ×2 (05:09→13:30)
[2017-01-22 05:17] LABS: % IMMATURE GRANULYOCYTES 0.5 % (0.0-1.1); ABSOLUTE IMMATURE GRANULOCYTES 0.05 10^3/uL (0.00-0.10); ADD DIFF? NO; ADD MORPH? NO; ADD SCAN? NO; ATYPICAL LYMPHOCYTE FLAG 10 (0-99); FRAGMENT RBC FLAG 0 (0-99); HEMATOCRIT 41.5 % (40.0-51.0); HEMOGLOBIN 14.3 g/dL (13.7-17.5); LEFT SHIFT FLG 0 (0-99); LIPEMIA HEMOLYSIS FLAG 90 (0-99); MEAN CELL HEMOGLOBIN 29.1 pg (27.9-34.1); MEAN CELL HEMOGLOBIN CONCENTR. 34.5 g/dL (32.4-36.7); MEAN CELL VOLUME 84.5 fL (81.5-99.8); MEAN PLATELET VOLUME 9.9 fL (8.7-11.7); PLATELET CLUMPS FLAG 10 (0-99); PLATELET COUNT 203 10^3/uL (150-400); RED BLOOD CELL COUNT 4.91 10^6/uL (4.40-6.38)
[2017-01-22 05:22] LABS: ANION GAP 8 mEq/L (8-16); CALCIUM 8.4 mg/dL (8.5-10.4); CARBON DIOXIDE 24 mEq/l (22-31); CHLORIDE 107 mEq/L (97-110); GLOMERULAR FILTRATION RATE > 60; GLUCOSE 110 mg/dL (70-100); POTASSIUM 4.2 mEq/L (3.5-5.2); SODIUM 139 mEq/L (134-144)
--- NOTE | 2017-01-22 10:37 | HOSPPROG ---
Hospitalist Progress Note Assessment/Plan: Adrian who goes by 'Demond" is a 31 y/o male who presented to the ER with vague abdominal pain. He was recently here with diverticulitis. Today is my first encounter with the patient, chart reviewed. Diverticulitis - progression of microperforations on repeat CT. - may need a colectomy (appreciate Dr Fuentes) - NPO - Ertapenem, IV fluids Diarrhea -had been on Flagyl and Cipro -c Diff negative Hypertension - resolved -takes HCTZ in outpt setting, but stopped this some time ago. Hernia - incidental finding on CT. DVT prophylaxis - low risk, SCD's for now. Consider Lovenox if post-op and prolonged hospitalization. Dispo - inpt, will require >48 hrs hospitalization for management of diverticulitis with microperforation Subjective: Demond is having very little abdominal pain but some pain above the pelvis area that is improved today. Objective: Vital Signs Temp Pulse Resp BP Pulse Ox 36.7 C 64 16 129/99 H 97 01/22/17 07:21 01/22/17 07:21 01/22/17 07:21 01/22/17 07:21 01/22/17 07:21 Laboratory Results 01/22/17 04:10 01/22/17 04:10 01/21/17 01/22/17 01/23/17 05:59 05:59 05:59 Intake Total 2650 Output Total 800 Balance 1850 PT 14.9 SEC (12.0-15.0) 01/21/17 15:12 INR 1.20 (0.83-1.16) H 01/21/17 15:12 - Physical Exam Constitutional: no apparent distress, appears nourished Eyes: PERRL Ears, Nose, Mouth, Throat: moist mucous membranes, hearing normal Cardiovascular: regular rate and rhythym Respiratory: no respiratory distress Gastrointestinal: normoactive bowel sounds, tenderness (slight) Skin: warm, normal color Musculoskeletal: full muscle strength, no muscle tenderness Neurologic: AAOx3 Psychiatric: interacting appropriately ICD10 Worksheet Patient Problems: Problems Problem Status Onset Acute abdominal pain Acute Diverticulitis Acute Diverticulitis of colon Acute Diverticulitis Acute
[2017-01-22] MEDS: ERTAPENEM 1 GM in NS 100 ML IV SCH (16:34)
--- NOTE | 2017-01-22 20:38 | SOAPPROG ---
SOAP Progress Note Assessment/Plan: Assessment/Plan: 31 Y M c first episode of diverticulitis. Failed outpatient oral antibiotic treatment. Persistent diarrhea and mild pain. No fever. Mildly elevated WBCs. Continue clears and IV abx. May need sigmoid colectomy. This discussed. S: still diarrhea O: alert, nad, nontoxic appearing mmm ctab rrr abd soft, +tenderness with deep palpation llq, no guarding. 01/22/17 20:36 Objective: Vital Signs Temp Pulse Resp BP Pulse Ox 36.6 C 75 18 158/105 H 96 01/22/17 19:32 01/22/17 19:32 01/22/17 19:32 01/22/17 19:32 01/22/17 19:32 Laboratory Results 01/22/17 04:10 01/22/17 04:10 01/21/17 01/22/17 01/23/17 05:59 05:59 05:59 Intake Total 2650 1100 Output Total 800 2400 Balance 1850 -1300 PT 14.9 SEC (12.0-15.0) 01/21/17 15:12 INR 1.20 (0.83-1.16) H 01/21/17 15:12 ICD10 Worksheet Patient Problems: Problems Problem Status Onset Acute abdominal pain Acute Diverticulitis Acute Diverticulitis of colon Acute Diverticulitis Acute
[2017-01-23 05:53] LABS: ALANINE AMINOTRANSFERASE 27 IU/L (21-72); ALBUMIN 3.2 g/dL (3.5-5.0); ALKALINE PHOSPHATASE 62 IU/L (38-126); ANION GAP 11 mEq/L (8-16); ASPARTATE AMINOTRANSFERASE 13 IU/L (17-59); BILIRUBIN,TOTAL 0.5 mg/dL (0.1-1.4); CALCIUM 8.5 mg/dL (8.5-10.4); CARBON DIOXIDE 22 mEq/l (22-31); CHLORIDE 107 mEq/L (97-110); CREATININE 0.9 mg/dL (0.7-1.3); GLOMERULAR FILTRATION RATE > 60; GLUCOSE 108 mg/dL (70-100); POTASSIUM 4.1 mEq/L (3.5-5.2); SODIUM 140 mEq/L (134-144); TOTAL PROTEIN 6.1 g/dL (6.3-8.2)
[2017-01-23] MEDS: D5W NS 1,000 ML IV SCH (06:28)
[2017-01-23] MEDS: ERTAPENEM 1 GM in NS 100 ML IV SCH (09:00)
--- NOTE | 2017-01-23 10:17 | HOSPPROG ---
Hospitalist Progress Note Assessment/Plan: 31 y/o male presenting with # complicated diverticulitis with evidence of microperforations on CT failed outpatient treatment with cipro/flagyl -I discussed the case with surgery team who are recommending further in hospital care with IV Erta. -Advance diet -plan to transition to oral abx once wbc normalize and tolerating diet with adequate pain control # Diarrhea (c-diff negative) -monitor for signs of dehydration or electrolyte disturbance # Hypertension poor control -start lisinopril 5mg and monitor #fat containing left inguinal hernia noted incidentally on CT Subjective: reports persistent llq abd pain and diarrhea. pain described as a /10. tolerating clear liquid diet with improving appetite. denies fever, chills, sweats. 3 episodes of nonbloody diarrhea Objective: Vital Signs Temp Pulse Resp BP Pulse Ox 36.5 C 57 L 12 158/97 H 96 01/23/17 07:56 01/23/17 07:56 01/23/17 07:56 01/23/17 07:56 01/23/17 07:56 Laboratory Results 01/22/17 04:10 01/23/17 04:17 01/22/17 01/23/17 01/24/17 05:59 05:59 05:59 Intake Total 2650 1600 4761 Output Total 800 2400 2000 Balance 1850 -800 2761 PT 14.9 SEC (12.0-15.0) 01/21/17 15:12 INR 1.20 (0.83-1.16) H 01/21/17 15:12 ct abd reviewed Impression: 1. Worsening acute diverticulitis of the proximal sigmoid colon with microperforations and inflammatory changes, progressively worse since January 17, 2017. 2. No drainable abscess or focal fluid collection. - Physical Exam Constitutional: no apparent distress, appears nourished, not in pain Gastrointestinal: normoactive bowel sounds, soft, non-tender abdomen, no palpable masses, No guarding, No rebound, No distension Skin: no rashes or abrasions, no fluctuance, no induration ICD10 Worksheet Patient Problems: Problems Problem Status Onset Diverticulitis Acute Acute abdominal pain Acute Diverticulitis Acute Diverticulitis of colon Acute
[2017-01-23] MEDS: LISINOPRIL 5 MG TAB PO SCH (11:05)
--- NOTE | 2017-01-23 11:50 | SOAPPROG ---
SOAP Progress Note Assessment/Plan: Assessment: 31yo male with diverticulitis, micro perf. Concerned about ongoing diarrhea which began prior to antibiotics, no pain, no fever, still on clear liquids PE awake alert comfortabel Abdomen soft nontender throughout all 4 quadrants. negative rebound Plan: likely D/C if tolerates light diet discussed pathology of diverticulitis, possible elective surgery in future 01/23/17 11:47 Objective: Vital Signs Temp Pulse Resp BP Pulse Ox 36.6 C 67 14 131/91 H 94 01/23/17 11:02 01/23/17 11:02 01/23/17 11:02 01/23/17 11:05 01/23/17 11:02 Laboratory Results 01/22/17 04:10 01/23/17 04:17 01/22/17 01/23/17 01/24/17 05:59 05:59 05:59 Intake Total 2650 1600 4761 Output Total 800 2400 2000 Balance 1850 -800 2761 PT 14.9 SEC (12.0-15.0) 01/21/17 15:12 INR 1.20 (0.83-1.16) H 01/21/17 15:12 ICD10 Worksheet Patient Problems: Problems Problem Status Onset Acute abdominal pain Acute Diverticulitis Acute Diverticulitis of colon Acute Diverticulitis Acute
[2017-01-24 01:25] VITALS: RESP 16
[2017-01-24] MEDS ORDERED: IBUPROFEN 600 MG TAB PO ONE (04:23)
[2017-01-24 05:44] LABS: % IMMATURE GRANULYOCYTES 0.6 % (0.0-1.1); ABSOLUTE IMMATURE GRANULOCYTES 0.06 10^3/uL (0.00-0.10); ADD DIFF? NO; ADD MORPH? NO; ADD SCAN? NO; ATYPICAL LYMPHOCYTE FLAG 30 (0-99); FRAGMENT RBC FLAG 0 (0-99); HEMATOCRIT 43.7 % (40.0-51.0); HEMOGLOBIN 14.9 g/dL (13.7-17.5); LEFT SHIFT FLG 0 (0-99); LIPEMIA HEMOLYSIS FLAG 90 (0-99); MEAN CELL HEMOGLOBIN 28.7 pg (27.9-34.1); MEAN CELL HEMOGLOBIN CONCENTR. 34.1 g/dL (32.4-36.7); MEAN PLATELET VOLUME 9.8 fL (8.7-11.7); PLATELET CLUMPS FLAG 10 (0-99); PLATELET COUNT 245 10^3/uL (150-400); RED CELL DISTRIBUTION WIDTH 11.8 % (11.5-15.2)
[2017-01-24 08:42] VITALS: BP 140/87; PULSE 53; TEMP 97.7; O2SAT 95
[2017-01-24] MEDS: LISINOPRIL 5 MG TAB PO SCH (08:43)
[2017-01-24] MEDS: ERTAPENEM 1 GM in NS 100 ML IV SCH (08:44)
--- NOTE | 2017-01-24 14:26 | GDS ---
[f rep st] DISCHARGE SUMMARY DISCHARGE DIAGNOSES: 1. Complicated diverticulitis with evidence of microperforations on CT failing outpatient managemen t. 2. Hypertension. 3. Left inguinal hernia. CONSULTANTS: Dr. Jarett Fuentes, General Surgery. HOSPITAL COURSE AND STAY BY PROBLEM: 1. Complicated diverticulitis: The patient was admitted to the hospital where he was treated with IV ertapenem. On hospital day #3, his abdominal pain is resolved. He is tolerating a regular diet. He has had no fevers while in the hospital. His white blood cell count has been trending down. Andria liriano was seen by General Surgery on day of discharge, who thought it was reasonable for him to be disch arged on oral antibiotics to complete a 2-week course. The patient was instructed to follow up with General Surgery as an outpatient and seek medical attention if his symptoms recur or worsen. 2. Hypertension: The patient tells me that he was diagnosed with high blood pressure years ago, bu t has not been on medications. While in the hospital, he was started on lisinopril. Plan is to fol low up with a primary care provider to further address his hypertension. PHYSICAL EXAM: VITAL SIGNS: On day of discharge, blood pressure 140/87, pulse 53, respiratory rate 16, O2 saturation 95% on room air, temperature afebrile. GENERAL: No acute distress. HEART: S1, S2. LUNGS: Clear. ABDOMEN: Soft. EXTREMITIES: No edema. DIAGNOSTICS DONE THIS HOSPITAL STAY: CT of the abdomen done 01/21/2017, refer to report. DISCHARGE MEDICATIONS: Please refer to discharge medication reconciliation in [facility] for full det ails. DISCHARGE INSTRUCTIONS: The patient is discharged from the hospital where he should follow up with General Surgery in 2-4 weeks as well as with the primary care provider in the next week or 2 for [facility] followup and to address his hypertension. /[id number]/MODL
== END 2017-01-24 12:25 | disposition home or self-care (01) | DRG 392 ==
LOC: CED 14:34 → CEDHOLD 16:23 → F3E 18:13
PROVIDERS: ADMIT Hospitalist; ATTEND Hospitalist
DX: K57.20 Diverticulitis of large intestine with perforation and abscess without bleeding (principal); I10 Essential (primary) hypertension; K40.90 Unilateral inguinal hernia, without obstruction or gangrene, not specified as recurrent; R19.7 Diarrhea, unspecified; Z72.0 Tobacco use
CPT/HCPCS: 74177-PO; 80048-PO; 80076-PO; 83605-PO; 83690-PO; 85025-PO; 85610-PO; 85730-PO; 96361-PO; 96365-PO; 99215-PO; G0463-PO; J1335; Q9967

== ENCOUNTER → 2017-03-21 | Outpatient (CLI) | payer OTHER ==
[~2017-03-21] MED LIST: IOPAMIDOL (ISOVUE-300) 100 ML BTL ONE
== END ==
LOC: FIMAGING 12:46
PROVIDERS: ATTEND Surgery
DX: R10.9 Unspecified abdominal pain (principal)
CPT/HCPCS: Q9967

== ENCOUNTER 2017-04-22 05:36 | Inpatient (IN) | payer OTHER ==
[2017-04-22] MEDS ORDERED: LR 1,000 ML IV ONE (05:53)
[2017-04-22] MEDS ORDERED: LIDOCAINE 1% 2 ML INJ ID PRN (05:53)
--- NOTE | 2017-04-22 07:27 | PDHPUP ---
History & Physical Update H&P update statement: This history and physical update is based on an assessment of the patient which was completed after admission or registration (within 24 hours), but prior to the surgery/procedure. H&P update: H&P reviewed & patient examined, no change in patient's condition since H&P completed
[2017-04-22] MEDS ORDERED: cefOXitin SODIUM 2 GM in D5W 100 ML IV ONE (07:28)
[2017-04-22] MEDS ORDERED: MIDAZOLAM 2 MG/2 ML VIAL IVP ONE (10:16)
--- NOTE | 2017-04-22 10:19 | PDANEPAE ---
ANE History of Present Illness 31 year old with diverticulitis ANE Past Medical History - Cardiovascular History Hx Hypertension: Yes Hx Arrhythmias: No Hx Chest Pain: No Hx Coronary Artery / Peripheral Vascular Disease: No Hx CHF / Valvular Disease: No Hx Palpitations: No Cardiovascular History Comment: HTN dx appro 6-7 yrs ago-on RX off and on. elevated BP stress related. - Pulmonary History Hx COPD: No Hx Asthma/Reactive Airway Disease: No Hx Recent Upper Respiratory Infection: No Hx Oxygen in Use at Home: No Hx Sleep Apnea: No Sleep Apnea Screening Result - Last Documented: Positive - Neurologic History Hx Cerebrovascular Accident: No Hx Seizures: No Hx Dementia: No - Endocrine History Hx Diabetes: No - Renal History Hx Renal Disorders: No - Liver History Hx Hepatic Disorders: No - Neurological & Psychiatric Hx Hx Neurological and Psychiatric Disorders: Yes Neurological / Psychiatric History Comment: on Rx anxiety - Cancer History Hx Cancer: No - GI History Hx Gastrointestinal Disorders: Yes Gastrointestinal History Comment: diverticulitis. Recent micro perforation. Cat Scan was WNL. on current Antibx since 04-15-17. 2nd or 3rd round of antibx. - Other Health History Other Health History: Mom's bro had Pheochromocytoma . Mom's dad had abdominal ( pancreatic?) CA. - Chronic Pain History Chronic Pain: No - Surgical History Prior Surgeries: appy 1997 ANE Review of Systems Review of systems is: negative - Exercise capacity METS (RN): 4 METS ANE Patient History - Allergies Allergies/Adverse Reactions: No Known Allergies Allergy (Verified 04/19/17 11:03) - Home Medications Home Medications: Herbals/Supplements -Info Only 1 ea PO DAILY 04/16/17 [Last Taken 04/21/17] Lisinopril [Zestril 5 mg (*)] 5 mg PO DAILY 04/16/17 [Last Taken 04/22/17 04:00] Sertraline HCl [Zoloft 100mg (*)] 100 mg PO DAILY 04/16/17 [Last Taken 04/22/17 04:00] clonazePAM [klonoPIN (*)] 2 mg PO DAILY PRN 04/16/17 [Last Taken 04/22/17 04:00] - NPO status NPO Since - Liquids (Date): 04/21/17 NPO Since - Liquids (Time): 21:00 NPO Since - Solids (Date): 04/21/17 NPO Since - Solids (Time): 07:30 - Smoking Hx Smoking Status: Current some day smoker - Alcohol Use Alcohol Use: Occasionally - Family Anes Hx Family Anes Hx: none ANE Labs/Vital Signs - Vital Signs Blood Pressure: 133/80 Heart Rate: 42 Respiratory Rate: 16 O2 Sat (%): 94 Height: 185.42 cm Weight: 126.099 kg ANE Physical Exam - Airway Neck exam: FROM Mallampati Score: Class 1 Mouth exam: normal dental/mouth exam, nieves - Pulmonary Pulmonary: no respiratory distress, clear to auscultation - Cardiovascular Cardiovascular: regular rate and rhythym - ASA Status ASA Status: II ANE Anesthesia Plan Anesthesia Plan: general endotracheal anesthesia
[2017-04-22] MEDS ORDERED: HEPARIN 1000 UNIT/1 ML MDV ONE (10:30)
[2017-04-22] MEDS ORDERED: ceFAZolin 1 GM/5 ML SYR ONE (10:30)
[2017-04-22] MEDS ORDERED: BUPIVACAINE 0.5% 30 ML SDV ONE (10:30)
[2017-04-22] MEDS ORDERED: ROCURONIUM 50 MG/5 ML VIAL ONE (10:42)
[2017-04-22] MEDS ORDERED: fentaNYL 100 MCG/2 ML INJ ONE ×3 (10:42→13:38)
[2017-04-22] MEDS ORDERED: DEXAMETHASONE 4 MG/ML VIAL ONE (10:42)
[2017-04-22] MEDS ORDERED: PROPOFOL 200 MG/20 ML VIAL ONE (10:42)
[2017-04-22] MEDS ORDERED: LIDOCAINE 2% 5 ML SDV ONE (10:43)
[2017-04-22] MEDS ORDERED: ONDANSETRON 4 MG/2 ML VIAL ONE (10:43)
[2017-04-22] MEDS ORDERED: HYDROmorphONE/DILAUDID 6 MG/30 ML PCA IV PRN (13:09)
[2017-04-22] MEDS ORDERED: ONDANSETRON 4 MG/2 ML VIAL IVP PRN ×2 (13:09→13:25)
[2017-04-22] MEDS ORDERED: NALOXONE HCL 0.4 MG/ML INJ IVP PRN ×2 (13:09→13:25)
--- NOTE | 2017-04-22 13:10 | POSTOPPROG ---
Post Op Note Date of Operation: 04/22/17 Surgeon: Jarett Fuentes Appeals Board Referee: Chelsea Quinn Anesthesiologist: Seven Warm Anesthesia: GET(General Endotracheal) Pre-op Diagnosis: diverticulosis, hx diverticulitis Post-op Diagnosis: same Procedure: lap assisted sigmoid colectomy Findings: thickened segment of colon Inf/Abcess present in the surg proc area at time of surgery?: No EBL: Minimal Complications: none Specimen(s): sigmoid colon and anastomotic rings
[2017-04-22] MEDS ORDERED: clonazePAM 1 MG TAB PO PRN (13:12)
[2017-04-22] MEDS ORDERED: HYDROmorphONE/DILAUDID 1 MG/ML SYR IVP PRN (13:25)
[2017-04-22] MEDS ORDERED: PROMETHAZINE HCL 25 MG/ML INJ IVP PRN (13:25)
--- NOTE | 2017-04-22 13:27 | POSTANESTH ---
Post Anesthetic Evaluation Cardiovascular Status: Normal, Stable Respiratory Status: Normal, Stable Level of Consciousness/Mental Status: Can Participate in Eval, Mildly Sleepy, Arousable Pain Control: Adequate, Prn Tx Ordered Nausea/Vomiting Control: Adequate, Prn Tx Ordered Complications Possibly Related to Anesthesia: None Noted
[2017-04-22] MEDS: fentaNYL 100 MCG/2 ML INJ IVP PRN ×2 (13:41→13:48)
[2017-04-22] MEDS: KETOROLAC 15 MG/1 ML SDV IVP SCH (17:35)
[2017-04-22] MEDS: cefOXitin SODIUM 2 GM in D5W 100 ML IV SCH (17:38)
--- NOTE | 2017-04-22 18:15 | SOAPPROG ---
SOAP Progress Note Assessment/Plan: Assessment/Plan: 31 Y M s/p lap assisted sigmoid colectomy, diverticulitis. POD# 0. Seen with Dr. Fuentes. AFVSS. Wounds intact. Alert. Pain controlled. NPO. Anne out in am. IV abx x 24h, diverticulitis/possible contamination. Continue routine post op care. 04/22/17 18:14 Objective: Vital Signs Temp Pulse Resp BP Pulse Ox 36.9 C 61 16 116/68 94 04/22/17 14:40 04/22/17 18:07 04/22/17 18:07 04/22/17 18:07 04/22/17 18:07 04/21/17 04/22/17 04/23/17 05:59 05:59 05:59 Intake Total 200 Output Total 750 Balance -550 ICD10 Worksheet Patient Problems: Problems Problem Status Onset Acute abdominal pain Acute Diverticulitis Acute Diverticulitis Acute Diverticulitis of colon Acute
[2017-04-22] MEDS: NS W/ 20 KCl/L 1,000 ML IV SCH (22:04)
[2017-04-23] MEDS: cefOXitin SODIUM 2 GM in D5W 100 ML IV SCH ×3 (00:23→11:46)
[2017-04-23] MEDS: KETOROLAC 15 MG/1 ML SDV IVP SCH ×5 (00:24→23:32)
[2017-04-23] MEDS: NS W/ 20 KCl/L 1,000 ML IV SCH ×3 (05:03→18:40)
[2017-04-23 05:29] LABS: HEMATOCRIT 44.9 % (40.0-51.0); HEMOGLOBIN 15.2 g/dL (13.7-17.5)
[2017-04-23 05:55] LABS: ANION GAP 9 mEq/L (8-16); CALCIUM 8.6 mg/dL (8.5-10.4); CARBON DIOXIDE 24 mEq/l (22-31); CHLORIDE 108 mEq/L (97-110); GLOMERULAR FILTRATION RATE > 60; GLUCOSE 88 mg/dL (70-100); POTASSIUM 5.1 mEq/L (3.5-5.2); SODIUM 141 mEq/L (134-144)
--- NOTE | 2017-04-23 08:00 | CPEKG ---
Heart Rate: 39 RR Interval: 1538 P-R Interval: 148 QRSD Interval: 100 QT Interval: 456 QTC Interval: 368 P Congers: 0 QRS Congers: 48 T Wave Congers: 10 EKG Severity - OTHERWISE NORMAL ECG - EKG Impression: SINUS BRADYCARDIA Electronically Signed By: Ar Navarrete 23-Apr-2017 11:58:37
[2017-04-23] MEDS: LISINOPRIL 5 MG TAB PO SCH (08:51)
[2017-04-23] MEDS: SERTRALINE HCL 100 MG TAB PO SCH (09:23)
--- NOTE | 2017-04-23 10:09 | SOAPPROG ---
SOAP Progress Note Assessment/Plan: Assessment: COMFORTABLE/5 SIGNS STABLE/AFEBRILE/SINUS BRADYCARDIA/WOUND OKAY/POSITIVE FLATUS AND BOWEL SOUNDS/ABDOMEN SOFT NONTENDER Plan: ADVANCE DIET 04/23/17 10:08 Objective: Vital Signs Temp Pulse Resp BP Pulse Ox 36.5 C 46 L 16 117/69 96 04/23/17 07:54 04/23/17 10:00 04/23/17 10:00 04/23/17 10:00 04/23/17 10:00 Laboratory Results 04/23/17 04:55 04/23/17 04:55 04/22/17 04/23/17 04/24/17 05:59 05:59 05:59 Intake Total 2399 Output Total 1575 Balance 824 ICD10 Worksheet Patient Problems: Problems Problem Status Onset Acute abdominal pain Acute Diverticulitis Acute Diverticulitis Acute Diverticulitis of colon Acute
[2017-04-24] MEDS: NS W/ 20 KCl/L 1,000 ML IV SCH (01:08)
[2017-04-24] MEDS: KETOROLAC 15 MG/1 ML SDV IVP SCH ×2 (05:29→13:03)
--- NOTE | 2017-04-24 08:07 | SOAPPROG ---
SOAP Progress Note Assessment/Plan: Assessment: COMFORTABLE/5 SIGNS STABLE/AFEBRILE/SINUS BRADYCARDIA/WOUND OKAY/POSITIVE FLATUS AND BOWEL SOUNDS/ABDOMEN SOFT NONTENDER Plan: ADVANCE DIET 04/23/17 10:08 04/24/17 08:06 AFEBRILE/ WOUND OK/ +FLATUS/ EATING/ HOME SOON Objective: Vital Signs Temp Pulse Resp BP Pulse Ox 36.6 C 51 L 16 131/84 H 97 04/24/17 07:05 04/24/17 07:05 04/24/17 07:05 04/24/17 07:05 04/24/17 07:05 Laboratory Results 04/23/17 04:55 04/23/17 04:55 04/23/17 04/24/17 04/25/17 05:59 05:59 05:59 Intake Total 1881 3115 Output Total 8443 3658 1550 Balance 584 -260 -1550 ICD10 Worksheet Patient Problems: Problems Problem Status Onset Acute abdominal pain Acute Diverticulitis Acute Diverticulitis Acute Diverticulitis of colon Acute
[2017-04-24] MEDS: LISINOPRIL 5 MG TAB PO SCH (08:17)
[2017-04-24] MEDS: OXYCODONE/APAP 5/325 TAB PO PRN ×3 (08:18→16:56)
[2017-04-24] MEDS: SERTRALINE HCL 100 MG TAB PO SCH (08:18)
[2017-04-24] MEDS ORDERED: ENOXAPARIN 40 MG/0.4 ML SYR SC SCH (09:00)
[2017-04-24 11:27] VITALS: O2SAT 95
[2017-04-24 15:04] VITALS: BP 113/71; PULSE 56; RESP 14; TEMP 98
== END 2017-04-24 17:00 | disposition home or self-care (01) | DRG 331 ==
LOC: F3E 05:36
PROVIDERS: ADMIT Surgery; ATTEND Surgery
PROC: 0DBN4ZZ Excision of Sigmoid Colon, Percutaneous Endoscopic Approach (ICD-10-PCS; principal; 2017-04-22 07:15)
DX: K57.30 Diverticulosis of large intestine without perforation or abscess without bleeding (principal); F32.9 Major depressive disorder, single episode, unspecified; I10 Essential (primary) hypertension; F41.9 Anxiety disorder, unspecified
CPT/HCPCS: J0694; J1100; J1170; J1650; J1885; J2250; J2405; J2704; J3010

== ENCOUNTER 2017-04-28 07:08 | Inpatient (IN) | payer OTHER ==
--- NOTE | 2017-04-28 07:40 | EDPHY ---
H & P Smoking Status: Current some day smoker Time Seen by Provider: 04/28/17 07:39 HPI/ROS: Chief complaint. fever post op HPI. Patient is a 31-year-old male who had diverticulosis surgery 6 days ago. He has been at home and recovering and feeling well. This morning he developed fever and chills. Vomiting x5. Left lower quadrant abdominal pain. He had blood in his stool postoperatively but this is decreasing. He has had continuous diarrhea since. He denies cough, shortness of breath, urinary symptoms. ROS Constitutional. Fever and chills Eyes. no problems with vision ENT. no sore throat, no nasal drainage Cardiovascular. no chest pain Respiratory. no shortness of breath, no cough Abdominal. Left lower abdominal pain with vomiting. Also with diarrhea . no problems urinating MS. no calf pain/swelling, no neck/back pain, no joint pain Skin. no rash Lymph. no swollen glands Neuro. no headache, no dizziness, no difficulty walking or with speech (Bhargav Garcia) Past Medical/Surgical History: Anxiety, hypertension, diverticulitis (Bhargav Garcia) Social History: Single, daily smoker, no alcohol (Bhargav Garcia) Physical Exam: General Appearance: Alert well-developed male mild distress vital signs show temp 37.1degrees heart rate 99, blood pressure 99/58 Eyes: Pupils equal and round no pallor or injection. ENT, Mouth: Mucous membranes are moist. Respiratory: There are no retractions, lungs are clear to auscultation. Cardiovascular: Regular rate and rhythm. Gastrointestinal: Abdomen is soft with healing surgical incisions without obvious evidence of infection. Tender in the left lower quadrant. Decreased bowel sounds. No masses Neurological: Awake and alert, sensory and motor exams grossly normal. Skin: Warm and dry, no rashes. Musculoskeletal: Neck is supple nontender. Extremities symmetrical, full range of motion. Psychiatric: Patient is oriented X 3, there is no agitation. (Bhargav Garcia) Constitutional: Initial Vital Signs Temperature (C) 37.1 C 04/28/17 07:18 Heart Rate 99 04/28/17 07:18 Respiratory Rate 16 04/28/17 07:18 Blood Pressure 99/58 L 04/28/17 07:18 O2 Sat (%) 97 04/28/17 07:18 O2 Delivery Mode Nasal Cannula O2 (L/minute) 2 Allergies/Adverse Reactions: No Known Allergies Allergy (Verified 04/19/17 11:03) Home Medications: Medication Instructions Recorded Herbals/Supplements -Info Only 1 ea PO DAILY 04/16/17 Lisinopril [Zestril 5 mg (*)] 5 mg PO DAILY 04/16/17 Sertraline HCl [Zoloft 100mg (*)] 100 mg PO DAILY 04/16/17 clonazePAM [klonoPIN (*)] 2 mg PO DAILY PRN 04/16/17 oxyCODONE/APAP 5/325 [Percocet 1 - 2 tab PO Q4HRS PRN #30 tab 04/24/17 5/325 (*)] Medical Decision Making - Diagnostics Imaging Results: Imaging Impressions Abdomen CT 04/28/17 07:49 Impression: 1. Postsurgical changes of partial sigmoid colon resection with anastomosis. There is mild wall thickening and mesenteric inflammatory change proximal to the anastomosis which could be postoperative or colitis/diverticulitis. No evidence for abscess. Additionally, there is a small amount of free intraperitoneal air in the anterior lower pelvis that with the persistent air in the anterior abdominal wall and subcutaneous fat is more likely persistent air from the surgery than new perforation. 2. Air within the bladder which could be from recent catheterization or infection. Results called and discussed with Bhargav Garcia MD on April 28, 2017 at 0906 hours. Chest X-Ray 04/28/17 07:50 IMPRESSION: No evidence for acute cardiopulmonary abnormality. One-view chest x-ray interpreted by me is normal CT abdomen pelvis with IV contrast reviewed by me and discussed with Dr. Gates shows continuing free air in the abdomen that is still likely postoperative. There is some inflammation along the anastomosis area but there is no obvious evidence of anastomosis leak, abscess. It appears that the anastomosis open. There is air in his bladder. (Bhargav Garcia) Procedures: IV normal saline. Fentanyl for pain. Zofran for nausea (Bhargav Garcia) ED Course/Re-evaluation: Re-evaluation 9:00 a.m.--patient is stable the patient, his mother and I discussed imaging and lab results. We discussed treatment plan including recommendation for admission because of elevated white blood cell count, recent surgery, new fever chills and abdominal pain. They expressed understanding and agreement I have consulted and discussed the case with Dr. Camarillo, surgeon, who will see the patient in the emergency department. She also recommends admission (Bhargav Garcia) Differential Diagnosis: Some abdominal pain and fever and chills and postop patient. I am concerned about abscess, anastomosis leak however these are not demonstrated on CT. Patient has a normal chest x-ray and I did consider pneumonia. We are waiting urine though the patient does not have any urinary symptoms. He does have left lower quadrant abdominal pain in the area of his anastomosis with a markedly elevated white blood cell count. Plan will be admission (Bhargav Garcia) Other Provider: I did not see this patient while in the emergency department. (Shanti Mckee) - Data Points Laboratory Results: Laboratory Results 04/28/17 07:58 04/28/17 07:58 04/28/17 04/28/17 04/28/17 07:58 07:58 07:58 WBC 19.62 10^3/uL H 10^3/uL (3.80-9.50) RBC 5.66 10^6/uL 10^6/uL (4.40-6.38) Hgb 16.5 g/dL g/dL (13.7-17.5) Hct 47.3 % % (40.0-51.0) MCV 83.6 fL fL (81.5-99.8) MCH 29.2 pg pg (27.9-34.1) MCHC 34.9 g/dL g/dL (32.4-36.7) RDW 12.5 % % (11.5-15.2) Plt Count 185 10^3/uL 10^3/uL (150-400) MPV 10.5 fL fL (8.7-11.7) Neut % (Auto) 89.9 % H % (39.3-74.2) Lymph % (Auto) 2.6 % L % (15.0-45.0) [place] % (Auto) 6.6 % % (4.5-13.0) Eos % (Auto) 0.1 % L % (0.6-7.6) Baso % (Auto) 0.3 % % (0.3-1.7) Nucleat RBC Rel Count 0.0 % % (0.0-0.2) Absolute Neuts (auto) 17.67 10^3/uL H 10^3/uL (1.70-6.50) Absolute Lymphs (auto) 0.51 10^3/uL L 10^3/uL (1.00-3.00) Absolute Monos (auto) 1.29 10^3/uL H 10^3/uL (0.30-0.80) Absolute Eos (auto) 0.01 10^3/uL L 10^3/uL (0.03-0.40) Absolute Basos (auto) 0.05 10^3/uL 10^3/uL (0.02-0.10) Absolute Nucleated RBC 0.00 10^3/uL 10^3/uL (0-0.01) Immature Gran % 0.5 % % (0.0-1.1) Immature Gran # 0.09 10^3/uL 10^3/uL (0.00-0.10) PT 15.2 SEC H SEC (12.0-15.0) INR 1.20 H (0.83-1.16) APTT 28.5 SEC SEC (23.0-38.0) VBG Lactic Acid Sodium 137 mEq/L mEq/L (134-144) Potassium 4.4 mEq/L mEq/L (3.5-5.2) Chloride 101 mEq/L mEq/L (97-110) Carbon Dioxide 21 mEq/l L mEq/l (22-31) Anion Gap 15 mEq/L mEq/L (8-16) BUN 16 mg/dL mg/dL (7-23) Creatinine 1.2 mg/dL mg/dL (0.7-1.3) Estimated GFR > 60 Glucose 122 mg/dL H mg/dL (70-100) Calcium 9.3 mg/dL mg/dL (8.5-10.4) Total Bilirubin 1.8 mg/dL H mg/dL (0.1-1.4) Lipase 30.0 IU/L IU/L (23-300) 04/28/17 07:58 WBC RBC Hgb Hct MCV MCH MCHC RDW Plt Count MPV Neut % (Auto) Lymph % (Auto) [place] % (Auto) Eos % (Auto) Baso % (Auto) Nucleat RBC Rel Count Absolute Neuts (auto) Absolute Lymphs (auto) Absolute Monos (auto) Absolute Eos (auto) Absolute Basos (auto) Absolute Nucleated RBC Immature Gran % Immature Gran # PT INR APTT VBG Lactic Acid 1.4 mmol/L mmol/L (0.7-2.1) Sodium Potassium Chloride Carbon Dioxide Anion Gap BUN Creatinine Estimated GFR Glucose Calcium Total Bilirubin Lipase Medications Given: Discontinued Medications Fentanyl (Sublimaze) 50 mcg IVP EDNOW ONE Stop: 04/28/17 08:14 Last Admin: 04/28/17 08:09 Dose: 50 mcg Sodium Chloride (Ns) 1,000 mls @ 0 mls/hr IV ONCE ONE; Wide Open PRN Reason: Protocol Stop: 04/28/17 07:49 Last Admin: 04/28/17 08:10 Dose: 1,000 mls Ondansetron HCl (Zofran) 4 mg IVP EDNOW ONE Stop: 04/28/17 08:14 Last Admin: 04/28/17 08:09 Dose: 4 mg Departure - Departure Disposition: [facility] Inpatient Acute Clinical Impression: Abdominal pain Qualifiers: Abdominal location: left lower quadrant Qualified Code(s): R10.32 - Left lower quadrant pain Condition: Fair
[2017-04-28] MEDS ORDERED: NS 1,000 ML IV ONE (07:48)
[2017-04-28 08:07] LABS: % IMMATURE GRANULYOCYTES 0.5 % (0.0-1.1); ABSOLUTE IMMATURE GRANULOCYTES 0.09 10^3/uL (0.00-0.10); ADD DIFF? NO; ADD MORPH? NO; ADD SCAN? NO; ATYPICAL LYMPHOCYTE FLAG 0 (0-99); FRAGMENT RBC FLAG 0 (0-99); HEMATOCRIT 47.3 % (40.0-51.0); HEMOGLOBIN 16.5 g/dL (13.7-17.5); LEFT SHIFT FLG 20 (0-99); LIPEMIA HEMOLYSIS FLAG 90 (0-99); MEAN CELL HEMOGLOBIN 29.2 pg (27.9-34.1); MEAN CELL HEMOGLOBIN CONCENTR. 34.9 g/dL (32.4-36.7); MEAN CELL VOLUME 83.6 fL (81.5-99.8); MEAN PLATELET VOLUME 10.5 fL (8.7-11.7); PLATELET CLUMPS FLAG 0 (0-99); PLATELET COUNT 185 10^3/uL (150-400); RED BLOOD CELL COUNT 5.66 10^6/uL (4.40-6.38); RED CELL DISTRIBUTION WIDTH 12.5 % (11.5-15.2)
[2017-04-28] MEDS ORDERED: ONDANSETRON 4 MG/2 ML VIAL ONE (08:08)
[2017-04-28] MEDS ORDERED: fentaNYL 100 MCG/2 ML INJ ONE (08:09)
[2017-04-28] MEDS ORDERED: ONDANSETRON 4 MG/2 ML VIAL IVP ONE (08:13)
[2017-04-28] MEDS ORDERED: fentaNYL 100 MCG/2 ML INJ IVP ONE (08:13)
[2017-04-28 08:16] LABS: INR 1.2 (0.83-1.16); PROTIME(PATIENT) 15.2 SEC (12.0-15.0)
[2017-04-28 08:17] LABS: APTT 28.5 SEC (23.0-38.0)
[2017-04-28 08:22] LABS: ANION GAP 15 mEq/L (8-16); BILIRUBIN,TOTAL 1.8 mg/dL (0.1-1.4); CALCIUM 9.3 mg/dL (8.5-10.4); CARBON DIOXIDE 21 mEq/l (22-31); CHLORIDE 101 mEq/L (97-110); CREATININE 1.2 mg/dL (0.7-1.3); GLOMERULAR FILTRATION RATE > 60; GLUCOSE 122 mg/dL (70-100); POTASSIUM 4.4 mEq/L (3.5-5.2); SODIUM 137 mEq/L (134-144)
[2017-04-28] MEDS ORDERED: IOPAMIDOL (ISOVUE-300) 100 ML BTL ONE (08:28)
[2017-04-28] MEDS ORDERED: OXYCODONE/APAP 5/325 TAB PO PRN (09:23)
[2017-04-28] MEDS ORDERED: ONDANSETRON 4 MG/2 ML VIAL IVP PRN (09:23)
[2017-04-28] MEDS: ERTAPENEM 1 GM in NS 100 ML IV SCH (09:40)
[2017-04-28 10:28] LABS: COLOR YELLOW; LEUKOCYTE ESTERASE,URINE NEGATIVE (NEGATIVE); NITRITE,URINE NEGATIVE (NEGATIVE)
--- NOTE | 2017-04-28 10:46 | GHP ---
[f rep st] HISTORY AND PHYSICAL DATE OF ADMISSION: 04/28/2017 CHIEF COMPLAINT: Emesis, chills, and fevers. HISTORY OF PRESENT ILLNESS: The patient is a 31-year-old man who underwent laparoscopic-assisted sigmoid colectomy for diverticulitis on April 22, 2017. He was discharged on April 24, 2017. At home he has been passing flatus. He has had small bowel movements with some straining, but no large bowel movement. He developed emesis at home as well as chills. He called me this morning and I asked him to present to the emergency room. In the emergency room a CBC was obtained which showed a white blood cell count of 19,000. He had a chest x-ray that looked clear. He had a CT scan of his abdomen and pelvis, which showed postsurgical changes of the sigmoid colon resection with mild wall thickening without evidence of abscess. There is a small amount of free intraperitoneal air. There is also air within the bladder. PAST MEDICAL HISTORY: Anxiety, depression, hypertension. PAST SURGICAL HISTORY: Appendectomy, colon resection as above. HOME MEDICATIONS: Include clonazepam, lisinopril, oxycodone. ALLERGIES: No known drug allergies. FAMILY HISTORY: Significant for hypertension. SOCIAL HISTORY: He quit tobacco use in 2004. He lives at home. REVIEW OF SYSTEMS: Significant for remembering passing air after the Anne was removed, fevers, chills, nausea, vomiting. Otherwise, 10-point review of systems negative. PHYSICAL EXAMINATION: VITAL SIGNS: 37.1, 99, 99/58, 16, 97% on room air. GENERAL: Pleasant, sitting up in bed, appears slightly ill. Well-groomed, well -nourished. HEENT: Normocephalic. No gross hearing deficits. Mucous membranes moist. Pupils equal and round. No scleral icterus. LUNGS: Clear to auscultation bilaterally. No increased work of breathing. CARDIAC: Regular rate. ABDOMEN: His bowel sounds are hypoactive. He is soft and his tenderness is appropriate. His incisions are clean, dry, and intact. SKIN: Warm and dry. PSYCH: Mood and affect normal. NEURO: Grossly intact. LABORATORY DATA: Results reviewed per HPI. IMPRESSION AND PLAN: The patient is a 31-year-old, status post sigmoid colectomy now with postop fevers. He does have a small amount of free air but this could be usual postop. There is no obvious sign of a leak or an abscess. I put him on clear liquids and placed him on Invanz. We are awaiting his urinalysis and urine culture. We will obtain a white count in the morning. /[id number]/MODL MTDD
[2017-04-28] MEDS: ACETAMINOPHEN 325 MG TAB PO PRN ×2 (11:03→16:36)
[2017-04-28] MEDS: D5W 1/2 NS W/ 20 KCl/L 1,000 ML IV SCH ×2 (11:07→22:16)
[2017-04-28] MEDS: clonazePAM 1 MG TAB PO PRN (17:05)
[2017-04-29 04:52] LABS: % IMMATURE GRANULYOCYTES 0.6 % (0.0-1.1); ABSOLUTE IMMATURE GRANULOCYTES 0.09 10^3/uL (0.00-0.10); ADD DIFF? NO; ADD MORPH? NO; ADD SCAN? NO; ATYPICAL LYMPHOCYTE FLAG 0 (0-99); FRAGMENT RBC FLAG 0 (0-99); HEMATOCRIT 43.3 % (40.0-51.0); HEMOGLOBIN 14.9 g/dL (13.7-17.5); LEFT SHIFT FLG 40 (0-99); LIPEMIA HEMOLYSIS FLAG 90 (0-99); MEAN CELL HEMOGLOBIN 29.4 pg (27.9-34.1); MEAN CELL HEMOGLOBIN CONCENTR. 34.4 g/dL (32.4-36.7); MEAN CELL VOLUME 85.6 fL (81.5-99.8); MEAN PLATELET VOLUME 10.6 fL (8.7-11.7); PLATELET CLUMPS FLAG 0 (0-99); PLATELET COUNT 155 10^3/uL (150-400); RED BLOOD CELL COUNT 5.06 10^6/uL (4.40-6.38); RED CELL DISTRIBUTION WIDTH 12.9 % (11.5-15.2)
[2017-04-29 05:05] LABS: ANION GAP 12 mEq/L (8-16); CALCIUM 8.8 mg/dL (8.5-10.4); CARBON DIOXIDE 24 mEq/l (22-31); CHLORIDE 105 mEq/L (97-110); CREATININE 1.1 mg/dL (0.7-1.3); GLOMERULAR FILTRATION RATE > 60; GLUCOSE 111 mg/dL (70-100); POTASSIUM 5.2 mEq/L (3.5-5.2); SODIUM 141 mEq/L (134-144)
[2017-04-29] MEDS: SERTRALINE HCL 100 MG TAB PO SCH (10:15)
[2017-04-29] MEDS: LISINOPRIL 5 MG TAB PO SCH (10:15)
[2017-04-29] MEDS: ENOXAPARIN 40 MG/0.4 ML SYR SC SCH (10:55)
[2017-04-29] MEDS: ERTAPENEM 1 GM in NS 100 ML IV SCH (10:57)
--- NOTE | 2017-04-29 11:01 | SOAPPROG ---
SOAP Progress Note Assessment/Plan: Assessment/Plan: 31 y M s/p sigmoid colectomy for diverticulitis, admitted with chills, vomiting. UA ok. CXR ok. Cdif pending. CT without leak or abscess. Possible early intrabdominal infection. Appears to be responding to IV abx and clears. WBC down from 18 to 14. Afebrile x 24 hours. Dispo: pending S: c/o diarrhea. Chills resolved. No more N/V. O: gen: alert, nad no jaundice, mmm no wob rrr abd soft, appropriately ttp, inc cdi 04/29/17 10:57 Objective: Vital Signs Temp Pulse Resp BP Pulse Ox 36.6 C 63 16 125/69 H 98 04/29/17 07:18 04/29/17 07:18 04/29/17 07:18 04/29/17 10:15 04/29/17 07:18 Laboratory Results 04/29/17 04:25 04/29/17 04:25 04/28/17 04/29/17 04/30/17 05:59 05:59 05:59 Intake Total 4167 Output Total 1950 600 Balance 2217 -600 PT 15.2 SEC (12.0-15.0) H 04/28/17 07:58 INR 1.20 (0.83-1.16) H 04/28/17 07:58 ICD10 Worksheet Patient Problems: Problems Problem Status Onset Abdominal pain Acute Acute abdominal pain Acute Diverticulitis Acute Diverticulitis Acute Diverticulitis of colon Acute
[2017-04-29] MEDS: D5W 1/2 NS W/ 20 KCl/L 1,000 ML IV SCH (13:27)
[2017-04-29] MEDS ORDERED: LOPERAMIDE HCL 2 MG CAP PO PRN (15:04)
[2017-04-29] MEDS: LOPERAMIDE HCL 2 MG CAP PO PRN ×3 (18:06→23:57)
[2017-04-30] MEDS: D5W 1/2 NS W/ 20 KCl/L 1,000 ML IV SCH (02:55)
--- NOTE | 2017-04-30 09:58 | SOAPPROG ---
SOAP Progress Note Assessment/Plan: Assessment/Plan: 31 y M s/p sigmoid colectomy for diverticulitis, admitted with chills, vomiting. UA ok. CXR ok. Cdif negative--started immodium. CT without leak or abscess. Possible early intrabdominal infection. Appears to be responding to IV abx and clears. WBC down from 18 to 14. Afebrile ~48 hours. Will get CBC today. If down , then consider trial advancing of diet. Would like to have another dose of IV abx in am. If is doing well at that point, would consider d/c to home on oral abx. Dispo: pending. possibly home in am. S: c/o diarrhea--slowed with imodium, but still watery and mucus at times, nonbloody. Chills resolved. No more N/V. O: gen: alert, nad no jaundice, mmm no wob rrr abd soft, appropriately ttp, inc cdi 04/30/17 09:55 Objective: Vital Signs Temp Pulse Resp BP Pulse Ox 36.4 C 52 L 14 122/68 H 97 04/30/17 07:35 04/30/17 07:35 04/30/17 07:35 04/30/17 07:35 04/30/17 07:35 Laboratory Results 04/29/17 04:25 04/29/17 04:25 04/29/17 04/30/17 05/01/17 05:59 05:59 05:59 Intake Total 4167 2585 Output Total 1950 600 Balance 2217 1985 PT 15.2 SEC (12.0-15.0) H 04/28/17 07:58 INR 1.20 (0.83-1.16) H 04/28/17 07:58 ICD10 Worksheet Patient Problems: Problems Problem Status Onset Abdominal pain Acute Acute abdominal pain Acute Diverticulitis Acute Diverticulitis Acute Diverticulitis of colon Acute
[2017-04-30 10:27] LABS: % IMMATURE GRANULYOCYTES 0.4 % (0.0-1.1); ABSOLUTE IMMATURE GRANULOCYTES 0.03 10^3/uL (0.00-0.10); ADD DIFF? NO; ADD MORPH? NO; ADD SCAN? NO; ATYPICAL LYMPHOCYTE FLAG 0 (0-99); FRAGMENT RBC FLAG 0 (0-99); HEMATOCRIT 44.9 % (40.0-51.0); HEMOGLOBIN 15.3 g/dL (13.7-17.5); LEFT SHIFT FLG 10 (0-99); LIPEMIA HEMOLYSIS FLAG 90 (0-99); MEAN CELL HEMOGLOBIN CONCENTR. 34.1 g/dL (32.4-36.7); MEAN PLATELET VOLUME 10.3 fL (8.7-11.7); PLATELET CLUMPS FLAG 0 (0-99); PLATELET COUNT 171 10^3/uL (150-400); RED BLOOD CELL COUNT 5.28 10^6/uL (4.40-6.38); RED CELL DISTRIBUTION WIDTH 12.8 % (11.5-15.2)
[2017-04-30] MEDS: SERTRALINE HCL 100 MG TAB PO SCH (10:37)
[2017-04-30] MEDS: ENOXAPARIN 40 MG/0.4 ML SYR SC SCH (10:37)
[2017-04-30] MEDS: LISINOPRIL 5 MG TAB PO SCH (10:37)
[2017-04-30] MEDS: ERTAPENEM 1 GM in NS 100 ML IV SCH (10:37)
[2017-04-30 23:34] VITALS: O2SAT 95
[2017-05-01 07:16] VITALS: BP 134/75; PULSE 52; RESP 18; TEMP 97.7
[2017-05-01] MEDS: SERTRALINE HCL 100 MG TAB PO SCH (09:16)
[2017-05-01] MEDS: LISINOPRIL 5 MG TAB PO SCH (09:16)
[2017-05-01] MEDS: clonazePAM 1 MG TAB PO PRN (09:16)
[2017-05-01] MEDS: ENOXAPARIN 40 MG/0.4 ML SYR SC SCH (09:17)
[2017-05-01] MEDS: ERTAPENEM 1 GM in NS 100 ML IV SCH (09:17)
== END 2017-05-01 11:30 | disposition home or self-care (01) | DRG 864 ==
LOC: F3E 10:35 → OBSVTOIN 04-30 15:04
PROVIDERS: ADMIT Surgery; ATTEND Surgery
DX: R50.82 Postprocedural fever (principal); I10 Essential (primary) hypertension; F41.9 Anxiety disorder, unspecified; Z72.0 Tobacco use
CPT/HCPCS: 96374; J1335; J1650; J2405; J3010; Q9967